=== PATIENT | male | born 1960 | race Caucasian/White ===

== ENCOUNTER 2016-05-17 08:44 | Emergency (ER) | payer OTHER ==
[~2016-05-17] VITALS: Ht 170.2 cm; Wt 90.5 kg
[~2016-05-17 08:44] MED LIST: ASPI325T4 PO; ATOR80TA75 PO; BACTDS PO; CLIN-73 PO; CLOP75TA27 PO; HYDR-3498 PO; HYDR-762 PO; HYDR-906 PO; IBUP400T22 PO; IBUP800T25 PO; INSU100C3 SC; LANT3I SC; LOSA50TA6 PO; MED4DP PO; METF-382 PO; METO25TA4 PO; NAPR-688 PO; [UNRECOGNIZED DRUG - CODE] IN
[2016-05-17 09:04] VITALS: Ht 170.2 cm; Wt 90.5 kg
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
[2016-05-17] MEDS ORDERED: IBUPROFEN 800 MG TAB PO ONE (10:00)
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
[2016-05-17] MEDS ORDERED: HYDR-902 PO (10:59)
[2016-05-17] MEDS ORDERED: NAPR-260 PO (11:00)
== END 2016-05-17 11:39 | disposition home or self-care (01) ==
LOC: FTE 08:44
DX: S59.902A Unspecified injury of left elbow, initial encounter (principal); S99.912A Unspecified injury of left ankle, initial encounter; E11.9 Type 2 diabetes mellitus without complications; V28.4XXA Motorcycle driver injured in noncollision transport accident in traffic accident, initial encounter; Z79.4 Long term (current) use of insulin; Z79.82 Long term (current) use of aspirin; Z79.84 Long term (current) use of oral hypoglycemic drugs
CPT/HCPCS: 29105; 73080; 73610; Z7502; Z7610

== ENCOUNTER 2016-05-29 01:37 | Observation (INO) | payer OTHER ==
[~2016-05-29] VITALS: Ht 175.3 cm; Wt 94.0 kg
[~2016-05-29 01:37] MED LIST changes: +HYDR-902 PO; +NAPR-260 PO
[2016-05-29] MEDS ORDERED: ONDANSETRON 4 MG INJ IV STA ×5 (02:26→13:54)
[2016-05-29] MEDS ORDERED: HYDROmorphONE 1 MG/ML SYG IV STA ×4 (02:26→18:34)
[2016-05-29 02:47] LABS: BASOPHILS % 0.3 % (0.0-2.0); EOSINOPHILS # 0.1 10^3/ul (0.0-0.5); EOSINOPHILS % 0.5 % (0.0-7.0); HEMOGLOBIN 15.1 g/dl (14.0-18.0); LYMPHOCYTES # 2.5 10^3/ul (0.8-2.9); LYMPHOCYTES % 14.3 % (15.0-51.0); MEAN CORPUSCULAR HEMOGLOBIN 31.1 pg (29.0-33.0); MEAN CORPUSCULAR HGB CONC 35.2 g/dl (32.0-37.0); MEAN CORPUSCULAR VOLUME 88.3 fl (82.0-101.0); MONOCYTE # 0.7 10^3/ul (0.3-0.9); MONOCYTES % 3.9 % (0.0-11.0); NEUTROPHIL # 14.3 10^3/ul (1.6-7.5); PLATELET COUNT 252 10^3/UL (140-440); RED BLOOD COUNT 4.87 10^6/ul (4.70-6.10); RED CELL DISTRIBUTION WIDTH 13.2 % (11.5-14.5); UNCORRECTED WBC 17.6 10^3/ul (4.8-10.8); WHITE BLOOD COUNT 17.6 10^3/ul (4.8-10.8)
[2016-05-29 02:51] LABS: CONDITION 1
[2016-05-29 02:53] LABS: POTASSIUM 4.5 mmol/L (3.5-5.1)
[2016-05-29 02:55] LABS: BILIRUBIN,INDIRECT 0.3 mg/dl (0-1.1); BILIRUBIN,TOTAL 0.3 mg/dl (0.2-1.3); CREATININE 0.53 mg/dl (0.61-1.24)
[2016-05-29 02:56] LABS: CALCIUM 9.5 mg/dl (8.4-10.2)
--- NOTE | 2016-05-29 03:56 | RADRPT ---
PROCEDURE: ULTRASOUND LIMITED ABDOMEN CLINICAL INDICATION: 56-year-old male with abdominal pain. TECHNIQUE: Multiple sonographic of the right upper quadrant of the abdomen were obtained. The imag es were reviewed on a PACS workstation. COMPARISON: Right upper quadrant ultrasound September 18, 2013; CT abdomen/pelvis September 18, 2013. FINDINGS: The pancreas is not well visualized secondary to overlying bowel gas. The liver displays diffuse increase echogenicity consistent with fatty infiltration The liver measur es 18.1 cm in length. No evidence of intrahepatic biliary ductal dilatation is seen. The portal and hepatic veins are unremarkable. The gallbladder contains multiple small echogenic mobile foci with minimal shadowing. The gallbladd er wall thickness is within normal limits measuring 2.7 mm. No pericholecystic fluid is seen. The c ommon bile duct measures 4.2 mm and is not dilated. The right kidney displays normal echogenicity. The right kidney measures 11.2 cm in maximal length. No caliectasis or hydronephrosis is seen. There is a mid right renal cyst measuring 2.2 x 1.7 x 2.0 cm. No free fluid is seen. IMPRESSION: 1. Diffuse fatty infiltration of the liver. 2. Cholelithiasis. 3. Right renal cyst. .Roman Gordon MD, Date Time Electronically viewed and signed by .Roman Gordon MD, on 05/29/2016 03:55 .Josue
[2016-05-29] MEDS ORDERED: SOD CHLORIDE 0.9% 1,000 ML IV ONE (04:30)
[2016-05-29] MEDS ORDERED: DICY10CA60 PO (05:13)
[2016-05-29] MEDS ORDERED: HYDR-902 PO (05:13)
[2016-05-29] MEDS ORDERED: ONDA4TAB14 PO (05:13)
--- NOTE | 2016-05-29 05:25 | ERD ---
ER Documentation Chief Complaint Date/Time DATE: 05/29/16 TIME: 05:19 Chief Complaint crampy upper belly pain since 2300 w/1 episode of bilous material vomit HPI This is a 56-year-old male who stated that he started getting some epigastric pain with a gradual onset about 1 PM yesterday. He said he gradually got worse but manageable. He said he then had dinner the pain got much more severe a few hours later around 10 PM. He had 2 episodes of vomiting and no diarrhea. No chest pain or shortness of breath no recent melena no blood or bile in the vomitus. The pain is described as crampy without radiation. No history of gallstones in the past or peptic ulcer disease ROS All systems reviewed and are negative except as per history of present illness. Medications Home Meds Active Scripts Hydrocodone/Acetaminophen ([place] 10-325 Tablet) 1 Each Tablet, 1 TAB PO Q6H Y for PAIN, #20 TAB Prov:SHELBY BESSSTOSBALDOS A. DO 05/29/16 Ondansetron (Ondansetron Odt) 4 Mg Tab.rapdis, 4 MG PO Q6H Y for NAUSEA AND/OR VOMITING, #10 TAB Prov:SHELBY BESSSTOLOS A. DO 05/29/16 Dicyclomine Hcl* (Bentyl*) 10 Mg Capsule, 20 MG PO QID for PAIN, #20 CAP Prov:LEKKOSSHELBYSTOLOS A. DO 05/29/16 Naproxen* (Naprosyn*) 500 Mg Tablet, 500 MG PO BID Y for PAIN AND/OR INFLAMMATION, #30 TAB Prov:TATA WAITE PA-C 05/17/16 Hydrocodone/Acetaminophen ([place] 10-325 Tablet) 1 Each Tablet, 1 TAB PO Q6H Y for PAIN, #10 TAB Prov:TATA WAITEC 05/17/16 Hydrocodone/Acetaminophen ([place] 5-325 Tablet) 1 Each Tablet, 1 TAB PO Q6H Y for PAIN, #10 TAB Prov:RUDY JOHNSON 03/15/16 Methylprednisolone* (Medrol* DOSE PACK) 4 Mg/Dose-Pack Tab.ds.pk, 4 MG PO . DIRECTED for 6 Days, PACKET Prov:RUDY JOHNSON 03/15/16 Hydrocodone/Acetaminophen ([place] 5-325 Tablet) 1 Each Tablet, 1 EACH PO Q6, #15 TAB Prov:MORALES TIDWELL PA-C 12/20/15 Clindamycin Hcl* (Clindamycin Hcl*) 300 Mg Capsule, 300 MG PO TID for 10 Days, CAP Prov:MORALES TIDWELL PA-C 12/20/15 Hydrocodone Bit-Acetaminophen* ([place]*) 5-325 Mg Tab, 1 TAB PO Q6 Y for PAIN, # 20 TAB Prov:ZOILA WORRELL LAMP TESTER AND INSPECTOR 05/23/15 Ibuprofen* (Ibuprofen*) 400 Mg Tablet, 400 MG PO Q6H Y for PAIN, #30 TAB Prov:ZOILA WORRELL LAMP TESTER AND INSPECTOR 05/23/15 Sulfamethoxazole-Trimethoprim* (Bactrim* DS) 800-160 Mg Tab, 1 TAB PO BID for 10 Days, TAB Prov:ZOILA WORRELL LAMP TESTER AND INSPECTOR 05/23/15 Hydrocodone Bit-Acetaminophen* ([place]*) 5-325 Mg Tab, 1 TAB PO Q6 Y for PAIN, # 14 TAB Prov:MATI CARIAS PA-C 04/19/15 Clindamycin Hcl* (Clindamycin Hcl*) 300 Mg Capsule, 300 MG PO TID for 7 Days, CAP Prov:MATI CARIAS PA-C 04/19/15 Sulfamethoxazole-Trimethoprim* (Bactrim* DS) 800-160 Mg Tab, 1 TAB PO BID for 7 Days, TAB Prov:MATI CARIAS PA-C 04/19/15 Naproxen* (Naproxen*) 500 Mg Tablet, 500 MG PO BID Y for PAIN, #30 TAB Prov:ANH NEGRON PA-C 04/15/15 Hydrocodone Bit-Acetaminophen* ([place]*) 5-325 Mg Tab, 1 TAB PO Q6 Y for PAIN, # 7 TAB Prov:ANH NEGRON PA-C 04/15/15 Sulfamethoxazole-Trimethoprim* (Bactrim* DS) 800-160 Mg Tab, 1 TAB PO BID for 7 Days, TAB Prov:MATI CARIAS PA-C 04/13/15 Ibuprofen* (Motrin*) 800 Mg Tab, 800 MG PO Q6H Y for PAIN AND OR ELEVATED TEMP, #20 TAB Prov:VERONICA MERAZ 12/03/14 Hydrocodone Bit-Acetaminophen* ([place]*) 10-325 Mg Tablet, 1 TAB PO Q6 Y for PAIN , #20 TAB Prov:VERONICA MERAZ 12/03/14 Blood Sugar Diagnostic (Freestyle Test Strips) 1 Strip Strip, 1 STRIP IN TID for 30 Days, STRIP 1 Refill Prov:BROOKE BILLINGS 03/18/14 Reported Medications Atorvastatin* (Atorvastatin*) 80 Mg Tablet, 80 MG PO HS, TAB 12/02/14 Metformin Hcl* (Metformin Hcl*) 500 Mg Tablet, 1000 MG PO BID, TAB 12/02/14 Metoprolol Tartrate* (Lopressor*) 25 Mg Tablet, 25 MG PO BID, TAB 12/02/14 Losartan Potassium* (Losartan Potassium*) 50 Mg Tablet, 50 MG PO DAILY, TAB 12/02/14 Insulin Glargine* (Lantus*) 100 Unit/Ml Soln, 75 UNIT SC HS, EA 12/02/14 Insulin Aspart (Novolog) 100 U/Ml Cartridge, 0 SC SLIDING SCALE AC, EA 12/02/14 Aspirin* (Aspirin*) 325 Mg Tablet, 325 MG PO DAILY, TAB 03/12/14 Clopidogrel Bisulfate (Clopidogrel) 75 Mg Tablet, 75 MG PO DAILY, TAB 03/12/14 Allergies Allergies: Coded Allergies: Penicillins (Verified Allergy, Unknown, 05/23/15) ALLERGY CHILD, UNKNOWN REACTION PMhx/Soc History of Surgery: Yes (Back Surgery,Abscess Repair,Cardiac Stents Placed) Anesthesia Reaction: No Hx Neurological Disorder: No Hx Respiratory Disorders: No Hx Cardiac Disorders: Yes Hx Psychiatric Problems: No Hx Miscellaneous Medical Probl: Yes (DM2,DKA,Paronychia) Hx Alcohol Use: Yes (Social) Hx Substance Use: Yes ([place] during HS days) Hx Tobacco Use: Yes (10 sticks/day) Smoking Status: Current every day smoker FmHx Family History: No coronary disease Physical Exam Vitals Vital Signs Date Time Temp Pulse Resp B/P Pulse Ox O2 Delivery O2 Flow Rate FiO2 05/29/16 04:00 98.1 61 16 139/66 94 Room Air 05/29/16 02:00 68 18 134/51 98 Room Air 05/29/16 01:40 98.3 63 20 154/67 100 Physical Exam Const: Well-developed, well-nourished Head: Atraumatic, normocephalic Eyes: Normal Conjunctiva, PERRLA, EOMI, normal sclera, no nystagmus ENT: Normal External Ears, Nose and Mouth, moist mucus membranes. Neck: Full range of motion. No meningismus, no lymphadenopathy. Resp: Clear to auscultation bilaterally, no wheezing, rhonchi, rales Cardio: Regular rate and rhythm, no murmurs, S1 S2 present Abd: Soft, mild to moderate epigastric and right upper quadrant tenderness, non distended. Normal bowel sounds, no guarding or rebound, no pulsitile abdominal masses or bruits Skin: No petechiae or rashes, no ecchymosis , no maculopapular rash Back: No midline or flank tenderness Ext: No cyanosis, or edema, FROM x 4, normal inspection, neurovascularly intact x 4 Neur: Awake and alert, STR 5/5 x 4, sensation intact x 4, no focal findings, cerebellum intact Psych: Normal Mood and Affect Result Diagram: 05/29/16 0206 05/29/16 0206 Results 24 hrs Laboratory Tests Test 05/29/16 02:06 Alanine Aminotransferase (ALT/SGPT) 30IU/L Albumin 4.0g/dl Albumin/Globulin Ratio 1.00 Alkaline Phosphatase 102IU/L Anion Gap 17 Aspartate Amino Transf (AST/SGOT) 17IU/L Basophils # 0.010^3/ul Basophils % 0.3% Blood Urea Nitrogen 15mg/dl Calcium Level 9.5mg/dl Carbon Dioxide Level 25mmol/L Chloride Level 102mmol/L Creatinine 0.53mg/dl Direct Bilirubin 0.00mg/dl Eosinophils # 0.110^3/ul Eosinophils % 0.5% Globulin 4.00g/dl Glucose Level 310mg/dl Hematocrit 43.0% Hemoglobin 15.1g/dl Indirect Bilirubin 0.3mg/dl Lipase 520U/L Lymphocytes # 2.510^3/ul Lymphocytes % 14.3% Mean Corpuscular Hemoglobin 31.1pg Mean Corpuscular Hemoglobin Concent 35.2g/dl Mean Corpuscular Volume 88.3fl Mean Platelet Volume 9.0fl Monocytes # 0.710^3/ul Monocytes % 3.9% Neutrophils # 14.310^3/ul Neutrophils % 81.0% Nucleated Red Blood Cells # 0.010^3/ul Nucleated Red Blood Cells % 0.0/100WBC Platelet Count 63066^3/UL Potassium Level 4.5mmol/L Red Blood Count 4.8710^6/ul Red Cell Distribution Width 13.2% Sodium Level 139mmol/L Total Bilirubin 0.3mg/dl Total Protein 8.0g/dl White Blood Count 17.610^3/ul Current Medications Medications (Trade) Dose Ordered Sig/Joselyn Route PRN Reason Start Time Stop Time Status Last Admin Dose Admin Hydromorphone HCl (Dilaudid) 1 mg ONCE STAT IV 05/29/16 02:26 05/29/16 02:28 DC 05/29/16 02:35 Ondansetron HCl 4 mg 4 mg ONCE STAT IV 05/29/16 02:26 05/29/16 02:28 DC 05/29/16 02:35 Sodium Chloride (NS) 1,000 ml @ 1,000 mls/hr Q1H ONCE IV 05/29/16 04:30 05/29/16 05:29 05/29/16 04:36 Procedures/MDM PROCEDURE: ULTRASOUND LIMITED ABDOMEN CLINICAL INDICATION: 56-year-old male with abdominal pain. TECHNIQUE: Multiple sonographic of the right upper quadrant of the abdomen were obtained. The images were reviewed on a PACS workstation. COMPARISON: Right upper quadrant ultrasound September 18, 2013; CT abdomen/pelvis September 18, 2013. FINDINGS: The pancreas is not well visualized secondary to overlying bowel gas. The liver displays diffuse increase echogenicity consistent with fatty infiltration The liver measures 18.1 cm in length. No evidence of intrahepatic biliary ductal dilatation is seen. The portal and hepatic veins are unremarkable. The gallbladder contains multiple small echogenic mobile foci with minimal shadowing. The gallbladder wall thickness is within normal limits measuring 2.7 mm. No pericholecystic fluid is seen. The common bile duct measures 4.2 mm and is not dilated. The right kidney displays normal echogenicity. The right kidney measures 11.2 cm in maximal length. No caliectasis or hydronephrosis is seen. There is a mid right renal cyst measuring 2.2 x 1.7 x 2.0 cm. No free fluid is seen. IMPRESSION: 1. Diffuse fatty infiltration of the liver. 2. Cholelithiasis. 3. Right renal cyst. .Roman Gordon MD, Date Time Electronically viewed and signed by .Roman Gordon MD, MD on 05/29/2016 03:55 .M/ CC: JOCELIN BESS DO The patient has slightly elevated lipase which could be from vomiting, or possibility of a stone is causing an early blockage in the common bile duct. Could be some early elevation of the lipase and the liver function tests will gradually increase as well but at this time they are not elevated. I will obtain an MRCP to evaluate for a retained stone. Spoke with Dr. Watts of general surgery who wanted a CT scan of the abdomen to evaluate for other possible causes of his abdominal pain. MRCP and CAT scan are negative pelvis and the patient home. Lipase of 500 is not very impressive for acute pancreatitis could have been caused from vomiting as stated above. So current plan is to rule out retained stone and other pathology discharge home and follow-up if negative. The patient says he is much more comfortable at this time Departure Diagnosis: Primary Impression: Gall stones Condition: Stable Patient Instructions: Gallstones Referrals: DONIS WATTS MD, APOSTOLOS A. DO May 29, 2016 05:25
[2016-05-29] MEDS ORDERED: SOD CHLORIDE 0.9% 100 ML ONE (05:41)
[2016-05-29] MEDS ORDERED: IOHEXOL 300MG/ML 150 ML BTL ONE (05:41)
--- NOTE | 2016-05-29 06:12 | RADRPT ---
PROCEDURE: CT ABDOMEN/PELVIS WITH CONTRAST CLINICAL INDICATION: 56-year-old male with abdominal pain. TECHNIQUE: The study was performed utilizing a GE Categoricalpeed VCT 64-slice CT scanner. Direct axia l sections were obtained through the abdomen and pelvis with the use of 100 of Isovue-300 nonionic i ntravenous contrast material. Sagittal and coronal reformations were obtained. Automated exposure co ntrol and iterative reconstruction techniques were utilized for this examination. The images were r eviewed on a PACS workstation. CTD/vol = 18.7 mGy; Total Exam DLP = 1272.0 mGy-cm. COMPARISON: CT abdomen/pelvis September 18, 2013. FINDINGS: There is trace bibasilar subsegmental atelectasis. There is no evidence for significant pleural eff usion. The liver has a normal size and contour without focal areas of abnormal density or contrast enhancement. No intrahepatic nor extrahepatic biliary ductal dilatation is seen. The gallbladder con tains an ovoid gallstone measuring 8 x 6 mm without significant wall thickening or pericholecystic f luid. The pancreas is without areas of abnormal attenuation or contrast enhancement. This spleen i s identified and has a normal size without abnormal density or contrast enhancement. The gland is un remarkable. Again identified is an ovoid hypodense nodule within the left adrenal gland measuring a pproximately 2.2 x 1.6 x 1.7 cm without significant interval change. The kidneys are functional bila terally. There is a right lower pole renal cortical cyst measuring approximately 2.4 x 2.3 x 2.2 cm . This was present previously. There are multiple smaller hypodense foci identified throughout the kidneys bilaterally consistent with small cysts. The largest on the left side measures approxim ately 1.1 x 1.2 x 1.2 cm. No hydroureteronephrosis nor nephroureterolithiasis is evident. The urinar y bladder contains urine. There is [id number] retained stool throughout the colon without wilma s bowel obstruction. The appendix is not visualized however there is no periappendiceal inflammator y changes. The prostate is not enlarged. There is no significant free fluid. Mild bilateral inguin al hernias are noted containing fat. The aortoiliac vessels are calcified but without aneurysmal dil atation. Mild degenerative changes are seen throughout the spine. IMPRESSION: 1. Cholelithiasis. 2. Stable left adrenal nodular mass. 3. Bilateral renal cysts. 4. Lnpo-jz-tabaimot retained stool within the colon without gross bowel obstruction. 5. Mild bilateral inguinal hernias containing fat. 6. Vascular calcifications. 7. Degenerative changes within the spine. .Roman Gordon MD, Date Time Electronically viewed and signed by .Roman Gordon MD, on 05/29/2016 06:11 .Josue
[2016-05-29] MEDS ORDERED: morphine 4 MG/ML VIAL IV STA ×2 (06:45→13:54)
[2016-05-29] MEDS ORDERED: SOD CHLORIDE 0.9% 1,000 ML IV STA (07:29)
[2016-05-29] MEDS ORDERED: CIPROFLOXACIN 400MG/D5W 200 ML IVPB STA (07:29)
[2016-05-29] MEDS ORDERED: metroNIDAZOLE 500 MG/NS (PMX) 100 ML IVPB STA (07:29)
[2016-05-29 08:24] LABS: ADD UMIC YES; URINE BILIRUBIN (Dip) NEGATIVE (NEGATIVE); URINE BLOOD (Dip) NEGATIVE (NEGATIVE); URINE COLOR LT. YELLOW (YELLOW); URINE GLUCOSE (Dip) >=1000 % (NEGATIVE); URINE KETONES (Dip) TRACE (NEGATIVE); URINE LEUKOCYTE ESTERASE (Dip) NEGATIVE (NEGATIVE); URINE NITRITE (Dip) NEGATIVE (NEGATIVE); URINE TOTAL PROTEIN (Dip) 1+ (NEGATIVE); URINE UROBILINOGEN (Dip) 0.2 E.U./dL (0.1-1.0)
[2016-05-29] MEDS ORDERED: ONDANSETRON 4 MG INJ IV PRN ×2 (10:30→14:00)
--- NOTE | 2016-05-29 10:31 | RADRPT ---
PROCEDURE: MRCP. CLINICAL INDICATION: Right upper quadrant pain. TECHNIQUE: Axial single shot fast-spin echo, axial and coronal fat-saturated FIESTA, single-shot M COMPUTERIZED MILL RECORDER using both thick and thin-slab collimation, and 3D MRCP were performed. COMPARISON: Same day CT. FINDINGS: Gallbladder demonstrate a tiny single calculus. No intrahepatic nor extrahepatic biliary dilatation. No filling defect or choledocholithiasis. No biliary stricture. Pancreatic duct, as visualized, is unremarkable. There are bilateral renal cysts with nonspecific trace perinephric fluid/inflammation. There is a 2.5 cm left adrenal nodule. IMPRESSION: 1. No radiologic evidence of choledocholithiasis, biliary dilatation, or biliary obstruction. 2. Cholelithiasis, uncomplicated. 3. Incidental left adrenal nodule. Recommend correlation with biochemical markers and follow-up un enhanced CT of the abdomen in 6-12 months RPTAT: EE .Mathieu Gavin MD, MD Date Time Electronically viewed and signed by .Mathieu Gavin MD, on 05/29/2016 10:34 .C/
[2016-05-29] MEDS ORDERED: SOD CHLORIDE 0.45% 1,000 ML IV SCH (13:53)
[2016-05-29] MEDS ORDERED: NACL 0.9% 3 ML SYG IV SCH (14:00)
[2016-05-29] MEDS ORDERED: DOCUSATE SODIUM 100 MG CAP PO PRN (14:00)
[2016-05-29] MEDS ORDERED: ACETAMINOPHEN 325 MG TAB PO PRN (14:00)
[2016-05-29] MEDS ORDERED: ACETAMINOPHEN 650 MG SUPP PR PRN (14:00)
[2016-05-29] MEDS ORDERED: BISACODYL 10 MG SUPP PR PRN (14:00)
[2016-05-29] MEDS ORDERED: GLUCOSE GEL 15 GRAM TUBE BUCCAL PRN (14:30)
[2016-05-29] MEDS ORDERED: GLUCOSE GEL 15 GRAM TUBE PO PRN ×2 (14:30)
[2016-05-29] MEDS ORDERED: DEXTROSE 50% 50 ML SYRINGE IV PRN ×2 (14:30)
[2016-05-29] MEDS ORDERED: GLUCAGON 1 MG INJ IM PRN (14:30)
[2016-05-29 15:58] VITALS: TEMP 98.4
[2016-05-29] MEDS: metroNIDAZOLE 500 MG/NS (PMX) 100 ML IVPB SCH ×2 (16:28→22:27)
[2016-05-29 16:59] VITALS: BP 189/79; RESP 18
[2016-05-29] MEDS: morphine 2 MG INJ IV PRN ×2 (17:07→21:06)
[2016-05-29 17:15] VITALS: Ht 175.3 cm; Wt 94.0 kg
--- NOTE | 2016-05-29 18:29 | HP ---
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 HISTORY OF PRESENT ILLNESS: This is a pleasant 56-year-old gentleman with past medical history of d yslipidemia, hypertension, diabetes mellitus who presents to [facility] Emergency Room at m idnight 05/29/2016 secondary to having right upper quadrant and epigastric abdominal pain radiating to his back. The patient had a CT of the abdomen and pelvis, which showed cholelithiasis, stable le ft adrenal mass, bilateral renal cysts, mild to moderate x2. MRCP was obtained, which showed no niraj dence of choledocholithiasis, biliary dilation, biliary obstruction, cholelithiasis uncomplicated, a nd then the left adrenal nodule. The gallbladder showed diffuse fatty infiltration of the liver. T he patient's WBC was found to be elevated at 17.6. He was treated with IV fluid, pain medication vi a Dilaudid, normal saline with ciprofloxacin and Flagyl. THE PATIENT IS ALLERGIC TO PENICILLIN. neral surgery was consulted. At this time, the patient is being admitted to med/surg for further ev aluation and treatment. REVIEW OF SYSTEMS: At this time, positive for nausea. No vomiting. Positive abdominal pain. No c hest pain, shortness of breath. No headache, no dizziness, no lightheadedness. No change in visual acuity, diplopia, or photophobia. No sick contact. No recent travel history. No heat and cold in tolerance. No neck pain, no restricted range of motion. No change in the color of stool. The othe r 12 review of systems has been found to be negative. PAST MEDICAL AND SURGICAL HISTORY: As above per HPI. MEDICATIONS: 1. Aspirin. 2. Lipitor. 3. Bentyl. 4. [place]. 5. Lantus. 6. Losartan. 7. Metformin. 8. Lopressor. 9. Zofran. ALLERGIES: PENICILLIN. SOCIAL HISTORY: Positive for smoking half a pack of cigarettes per day. Occasional alcohol use. N o illicit drugs. FAMILY HISTORY: Noncontributory. PHYSICAL EXAMINATION: VITAL SIGNS: Temperature 98.4, pulse 69, respiration 18, blood pressure 134/64, oxygen 93% in room air. GENERAL APPEARANCE: The patient is lying in bed comfortably without any acute distress. He is awak e, alert, oriented. He is able to answer my questions properly. EYES AND ENT: Conjunctivae and lids are normal. Pupils are normal. Extraocular normal. Hearing g rossly normal. Pupils are normal. Oral mucosa is dry. NECK: Supple. Trachea is midline. No lymphadenopathy. RESPIRATORY: Effort is normal. Clear to auscultation bilaterally. CARDIOVASCULAR: Normal S1, S2. Regular rhythm and rate. No murmur, no bruits, no edema. Peripher al pulses, radial pulses palpable. Cap refill is normal. CHEST: Normal expansion of thorax during inspiration. GASTROINTESTINAL: Abdomen soft. Tenderness in the midepigastric and right upper quadrant to deep p alpation. No guarding, no rebound. Bowel sounds present. GENITOURINARY: Deferred. MUSCULOSKELETAL: Upper and lower extremities within normal limits. Full range of motion. NEUROLOGIC: Cranial nerves II through XII are grossly intact. PSYCHIATRIC: Normal judgment and insight. Alert and oriented x3. Mood and affect are normal. LABORATORY WORK AND IMAGING: WBC 17.6, hemoglobin 15.1, hematocrit 43.0, platelets 252. Sodium 139 , potassium 4.5, chloride 102, bicarbonate 25, BUN 15, creatinine 0.53, glucose 310. LFTs all withi n normal limits. Lipase 520. ASSESSMENT AND PLAN: 1. Gallstone pancreatitis. 2. Cholecystitis. 3. Diabetes mellitus. 4. Hypertension. 5. Dyslipidemia. 6. History of nicotine abuse. PLAN: The patient will be admitted to med/surg. General surgery has been consulted. The patient w ill be n.p.o. Will follow up lipid panel and serum lipase daily. For his diabetes mellitus, the pa tient will be placed on his home medication, Lantus insulin sliding scale. When patient is able to tolerate oral intake, we will place him on a low carb diet. For his essential hypertension, patient 's blood pressure is well controlled on his home medication. Will continue same regimen. For deep venous thrombosis prophylaxis, at this time will place the patient on SCD. For gastrointestinal pro phylaxis, on proton pump inhibitor. We will continue to monitor patient closely. Further recommendations, management, and treatment as per clinical course. Total amount of time was spent for evaluation of patient and admission workup 40 minutes. Dictated By: NANCY CONROY/NTS Conf#: [id number] DID#: [id number]
[2016-05-29] MEDS ORDERED: INFLUENZA VIRUS VACCINE 0.5 ML SYG IM* ONE (18:30)
[2016-05-29 18:40] VITALS: BP 159/76; PULSE 76
[2016-05-29 19:00] VITALS: BP 168/79; RESP 20
[2016-05-29] MEDS ORDERED: hydrALAzine 20 MG INJ IV PRN (19:00)
[2016-05-29] MEDS: INSULIN ASPART [NOVOLOG] 3 ML PEN SC SCH (20:25)
[2016-05-29] MEDS ORDERED: KETOROLAC 30 MG INJ IV PRN ×2 (20:30)
[2016-05-29] MEDS: metFORMIN 500 MG TAB PO SCH (20:33)
[2016-05-29] MEDS: CIPROFLOXACIN 400MG/D5W 200 ML IVPB SCH (20:33)
[2016-05-29] MEDS: DEXTROSE 5%-0.45% NACL 1,000 ML IV SCH (20:34)
[2016-05-29] MEDS: METOPROLOL 25 MG TAB PO SCH (20:34)
[2016-05-29] MEDS ORDERED: INSULIN GLARGINE [LANtus] 3 ML PEN SC SCH (21:00)
[2016-05-29 22:30] VITALS: BP 154/72
[2016-05-30] MEDS: INSULIN ASPART [NOVOLOG] 3 ML PEN SC SCH ×3 (00:15→12:36)
[2016-05-30] MEDS: metroNIDAZOLE 500 MG/NS (PMX) 100 ML IVPB SCH ×2 (05:49→13:29)
[2016-05-30] MEDS: DEXTROSE 5%-0.45% NACL 1,000 ML IV SCH ×2 (05:50→16:26)
[2016-05-30] MEDS ORDERED: PANTOPRAZOLE 40 MG INJ IV SCH (06:00)
[2016-05-30 06:32] LABS: ALBUMIN 3.3 g/dl (3.3-4.9)
[2016-05-30 06:33] LABS: POTASSIUM 4.6 mmol/L (3.5-5.1)
[2016-05-30 06:35] LABS: ALBUMIN/GLOBULIN RATIO 1.22; BILIRUBIN,INDIRECT 0.3 mg/dl (0-1.1); BILIRUBIN,TOTAL 0.3 mg/dl (0.2-1.3); CREATININE 0.58 mg/dl (0.61-1.24)
[2016-05-30 06:36] LABS: CALCIUM 8.5 mg/dl (8.4-10.2); CHOL/HDL RATIO 4.3 RATIO; MAGNESIUM 1.6 mg/dl (1.7-2.5)
[2016-05-30 06:52] LABS: BASOPHILS % 0.3 % (0.0-2.0); EOSINOPHILS # 0.1 10^3/ul (0.0-0.5); EOSINOPHILS % 1.3 % (0.0-7.0); HEMATOCRIT 39.6 % (42.0-52.0); HEMOGLOBIN 13.4 g/dl (14.0-18.0); LYMPHOCYTES % 26.5 % (15.0-51.0); MEAN CORPUSCULAR HEMOGLOBIN 31.5 pg (29.0-33.0); MEAN CORPUSCULAR HGB CONC 33.8 g/dl (32.0-37.0); MEAN CORPUSCULAR VOLUME 93.2 fl (82.0-101.0); MEAN PLATELET VOLUME 9.1 fl (7.4-10.4); MONOCYTE # 0.9 10^3/ul (0.3-0.9); NEUTROPHIL # 7.1 10^3/ul (1.6-7.5); NEUTROPHILS % 63.9 % (39.0-77.0); PLATELET COUNT 199 10^3/UL (140-440); RED BLOOD COUNT 4.25 10^6/ul (4.70-6.10); RED CELL DISTRIBUTION WIDTH 13.5 % (11.5-14.5); UNCORRECTED WBC 11.2 10^3/ul (4.8-10.8); WHITE BLOOD COUNT 11.2 10^3/ul (4.8-10.8)
[2016-05-30 07:07] LABS: CONDITION 1
[2016-05-30 07:32] VITALS: BP 129/76; RESP 16
[2016-05-30] MEDS: CIPROFLOXACIN 400MG/D5W 200 ML IVPB SCH (08:07)
[2016-05-30] MEDS: METOPROLOL 25 MG TAB PO SCH (08:09)
[2016-05-30] MEDS: metFORMIN 500 MG TAB PO SCH (08:09)
[2016-05-30] MEDS ORDERED: ASPIRIN 325 MG TAB PO SCH (09:00)
[2016-05-30] MEDS ORDERED: LOSARTAN 50 MG TAB PO SCH (09:00)
[2016-05-30] MEDS: morphine 2 MG INJ IV PRN (09:39)
--- NOTE | 2016-05-30 15:58 | PDOCDIS ---
Discharge Instructions CONDITION Patient Condition: Stable HOME CARE INSTRUCTIONS: Special Diet: low carb ACTIVITY: Activity Restrictions: No Restrictions FOLLOW UP/APPOINTMENTS Appointments Follow up with PCP this week FOllow up with Surgery in 1-2 weeks NANCY LARA MD May 30, 2016 15:58
[2016-05-30] MEDS ORDERED: HYDR-906 PO (16:09)
[2016-05-30] MEDS ORDERED: CIPR500T4 PO (16:09)
--- NOTE | 2016-05-30 18:26 | CONS ---
DATE OF ADMISSION: 05/29/2016 DATE OF CONSULTATION: 05/30/2016 HISTORY OF PRESENT ILLNESS: Mr. Rojas is a 56-year-old male who presented to the emergency room at [facility] yesterday evening due to acute onset of substernal pain as well as bradley sea, vomiting, and diarrhea. The patient denies prior episodes. The patient states his symptoms st arted on Sunday and then worsened on Sunday after he ate a possibly uncooked steak. The patient's symptoms have resolved at this time. PAST MEDICAL HISTORY: Significant for axt-ffeyyyq-pssjsqzvo diabetes, hypertension, dyslipidemia. MEDICATIONS 1. Aspirin. 2. Lipitor. 3. Bentyl. 4. [place]. 5. Lantus. 6. Losartan. 7. Metformin. 8. Lopressor. 9. Zofran. ALLERGIES: PENICILLIN. SOCIAL HISTORY: Smokes half pack a day. Denies drinking or drug use. PHYSICAL EXAMINATION: GENERAL: He is a well-nourished, well-developed male in no apparent distress. VITAL SIGNS: He is currently afebrile. Vital signs stable. CHEST: Clear to auscultation bilaterally. HEART: Regular rhythm. ABDOMEN: Soft, nontender, nondistended. LABORATORY DATA: Reveal white count of 11 down from 17, hematocrit of 39, and platelets of 199. So dium 138, potassium 4.6, chloride 100, CO2 of 28. BUN and creatinine 9 and 0.6 with a glucose of 22 8. LFTs are within normal limits. Gallbladder ultrasound revealed cholelithiasis only. A CT of th e abdomen and pelvis was essentially normal except for cholelithiasis and an MRCP did not show lalit docholithiasis or any evidence of cholecystitis. ASSESSMENT AND PLAN: 1. Ms. Rojas is a 56-year-old male with likely gastroenteritis versus reflux. 2. He has is no clinical or radiologic evidence of cholecystitis. 3. I discussed the fact that this could be of attacks of biliary colic but at this point, it is not clear. I gave patient my card and he understands that if he has repeat symptoms, he is to call me be more likely to perform a laparoscopic cholecystectomy. But at this juncture, there is no i ndication. Dictated By: DONIS HOLLAND/NTS Conf#: [id number] [facility]#: [id number]
[2016-05-30] MEDS ORDERED: INSULIN GLARGINE [LANtus] 3 ML PEN SC SCH (21:00)
--- NOTE | 2016-05-30 23:00 | DS ---
DATE OF ADMISSION: 05/29/2016 DATE OF DISCHARGE: 05/30/2016 PROGRAMMER ANALYST CONSULTANT: Dr. Stephan Lechuga. DISCHARGE DIAGNOSES: 1. Asymptomatic cholelithiasis. 1. Gastroenteritis. 2. Diabetes mellitus. 3. Dyslipidemia. 4. Essential hypertension. 5. Hypomagnesemia. 6. Uncontrolled diabetes mellitus with hemoglobin A1c 12.9. MEDICATIONS: The patient will continue his home medications. 1. Aspirin 325 mg. 2. Lipitor 80 mg. 3. Bentyl 20 mg. 4. [place] ____. 5. Lantus. I have suggested to increase from 75 units to 80 units. 6. Losartan 50 mg. 7. Metformin 1000 mg b.i.d. 8. Metoprolol 25 mg. 9. Zofran 4 mg. NEW PRESCRIPTIONS: 1. Ciprofloxacin 500 mg p.o. b.i.d., #14. 2. [place] 5/325. ALLERGIES: PENICILLIN. DISPOSITION: Home after evaluation by general surgery. LABORATORY: WBC 11.3, hemoglobin 13.5, hematocrit 39.6, platelets 199. Sodium 138, potassium 4.6, chloride 100, bicarbonate 28, BUN 9, creatinine 0.58, glucose 228. Hemoglobin A1c 12.9. Calcium 8. 5, magnesium 1.6. Total bilirubin 0.3, direct bilirubin 0, indirect bilirubin 0.3. AST 16, ALT 25, alkaline phosphatase 75. Triglyceride 211, total cholesterol 177, LDL 94, HDL 41. VITAL SIGNS: Temperature 98.5, pulse 61, respirations 16, blood pressure 129/77, oxygen 96% on room air. HOSPITAL COURSE: This is a pleasant 56-year-old gentleman with past medical history of dyslipidemia , hypertension, diabetes mellitus, and chronic pain syndrome who presented to [facility] secondary to having right upper abdominal pain, epigastric abdominal pain radiating to his ba ck. The patient's CT of the abdomen and pelvis showed cholelithiasis, stable left adrenal mass, cecilio ateral renal cysts. MRCP showed no evidence of choledocholithiasis, biliary dilation or biliary obs truction; cholelithiasis uncomplicated. Gallbladder ultrasound showed diffuse fatty infiltration of the liver with no evidence of cholecystitis. The patient's WBC was found to be 17.6. He was start ed on IV fluid, Dilaudid, ciprofloxacin. The patient was admitted to med/surg. General surgery was consulted. After evaluation of the imaging by general surgeon, the patient was started on clear li quid diet, which he has been tolerating. The patient has not had any pain medication, such as morph ine, since this morning at 9:00 a.m. He has been asymptomatic without any abdominal pain. He has n ot had any postprandial abdominal pain as well. Regarding his dyslipidemia, the patient has been co ntinued on Lipitor and his lipid panel is within normal limits. Regarding his diabetes mellitus, th e patient ____ was made n.p.o. His insulin/Lantus was divided by half. He was placed on 30 units, although he was found to be mildly hyperglycemic. I explained this phenomenon and defining with the patient. The patient's hemoglobin A1c was found to be 12.9. This was discussed with him. I have suggested the patient should continue metformin and increase his Lantus 75 units to 80 units and kiara ck his glucose on a daily basis and follow up with his primary care physician as outpatient. Regard ing his hypertension, his blood pressure is well controlled on Lopressor. At this time, the patient is waiting for general surgery evaluation and, since he has been asymptomatic, as per general surge ry recommendation, he will be discharged home with a close followup with his primary care physician. In case if the patient started having abdominal pain, he needs to return to emergency room immedia tely for possible cholecystectomy. Total amount of time was spent for evaluation and discharge workup 40 minutes. Dictated By: NANCY CONROY/EBONI Conf#: [id number] DID#: [id number]
== END 2016-05-30 17:15 | disposition home or self-care (01) ==
LOC: E/R 01:37 → MS2 10:08
PROVIDERS: ADMIT Family Medicine; ATTEND Family Medicine
DX: K80.20 Calculus of gallbladder without cholecystitis without obstruction (principal); K52.9 Noninfective gastroenteritis and colitis, unspecified; E11.9 Type 2 diabetes mellitus without complications; I10 Essential (primary) hypertension; E78.5 Hyperlipidemia, unspecified; Z87.891 Personal history of nicotine dependence; E11.8 Type 2 diabetes mellitus with unspecified complications; Z23 Encounter for immunization
CPT/HCPCS: 36415; 74177; 74181; 76705; 80053; 80061; 81001; 82150; 82962; 83036; 83690; 83735; 84484; 85025; 87040; 87086; 90686; 93005; 96365; 96366; 96367; 96372; 96374; 96375; 96376; C9113; J0744; J1170; J1815; J2270; J2405; J7030; J7042; Q9967; Z7500; Z7502; Z7610; 81003; G0378

== ENCOUNTER 2016-08-19 16:28 | Emergency (ER) | payer OTHER ==
[~2016-08-19] VITALS: Ht 160 cm; Wt 89.0 kg
[~2016-08-19 16:28] MED LIST changes: -BACTDS PO; +CIPR500T4 PO; -CLIN-73 PO; -CLOP75TA27 PO; +DICY10CA60 PO; -HYDR-3498 PO; -HYDR-762 PO; -IBUP400T22 PO; -IBUP800T25 PO; -INSU100C3 SC; -MED4DP PO; -METF-382 PO; +METF500T4 PO; -NAPR-260 PO; -NAPR-688 PO; +ONDA4TAB14 PO; -[UNRECOGNIZED DRUG - CODE] IN
[2016-08-19 16:33] VITALS: Ht 160 cm; Wt 89.0 kg
[2016-08-19] MEDS ORDERED: LIDOCAINE 1% (MDV) 20 ML INJ SC ONE (18:30)
[2016-08-19] MEDS ORDERED: DIPHTH/TET/ACEL PERTUSS (ADULT) 0.5 ML VIAL IM* ONE (18:30)
[2016-08-19] MEDS ORDERED: HYDROCODONE/APAP (5/325) TAB PO ONE (18:30)
--- NOTE | 2016-08-19 18:33 | ERD ---
ER Documentation Chief Complaint Date/Time DATE: 08/19/16 TIME: 18:27 Chief Complaint RIGHT LEG LAC HPI This 56-year-old male who presents to the emergency department today for a right leg laceration that he sustained a couple of hours ago. Patient states he was putting his motorcycle when he scraped his leg against the license plate of the motorcycle. States he is unsure when he last had his tetanus shot. Denies any fevers or chills. Denies any previous trauma. ROS All systems reviewed and are negative except as per history of present illness. Medications Home Meds Active Scripts Ibuprofen* (Motrin*) 600 Mg Tab, 600 MG PO Q6, #30 TAB Prov:TATA WAITE PA-C 08/19/16 Hydrocodone/Acetaminophen ([place] 5-325 Tablet) 1 Each Tablet, 1 TAB PO Q6H Y for PAIN, #10 TAB Prov:TATA WAITE PA-C 08/19/16 Sulfamethoxazole/Trimethoprim* (Bactrim Ds* Tablet) 1 Each Tablet, 1 TAB PO BID , #10 TAB Prov:TATA WAITE PA-C 08/19/16 Hydrocodone/Acetaminophen ([place] 5-325 Tablet) 1 Each Tablet, 1 EACH PO Q6H, #1 TAB Prov:NANCY LARA MD 05/30/16 Ciprofloxacin Hcl* (Ciprofloxacin Hcl*) 500 Mg Tablet, 500 MG PO BID, #14 TAB Prov:NANCY LARA MD 05/30/16 Hydrocodone/Acetaminophen ([place] 10-325 Tablet) 1 Each Tablet, 1 TAB PO Q6H Y for PAIN, #20 TAB Prov:JOCELIN BESS DO 05/29/16 Ondansetron (Ondansetron Odt) 4 Mg Tab.rapdis, 4 MG PO Q6H Y for NAUSEA AND/OR VOMITING, #10 TAB Prov:JOCELIN BESS DO 05/29/16 Dicyclomine Hcl* (Bentyl*) 10 Mg Capsule, 20 MG PO QID for PAIN, #20 CAP Prov:JOCELIN BESS DO 05/29/16 Reported Medications Atorvastatin* (Atorvastatin*) 80 Mg Tablet, 80 MG PO HS, TAB 12/02/14 Metformin Hcl* (Metformin Hcl*) 500 Mg Tablet, 1000 MG PO BID, TAB 12/02/14 Metoprolol Tartrate* (Lopressor*) 25 Mg Tablet, 25 MG PO BID, TAB 12/02/14 Losartan Potassium* (Losartan Potassium*) 50 Mg Tablet, 50 MG PO DAILY, TAB 12/02/14 Insulin Glargine* (Lantus*) 100 Unit/Ml Soln, 75 UNIT SC HS, EA 12/02/14 Aspirin* (Aspirin*) 325 Mg Tablet, 325 MG PO DAILY, TAB 03/12/14 Allergies Allergies: Coded Allergies: Penicillins (Verified Allergy, Unknown, 08/19/16) ALLERGY CHILD, UNKNOWN REACTION PMhx/Soc History of Surgery: Yes (back surgery, abcess repair, cardiac stents from angio ) Anesthesia Reaction: No Hx Neurological Disorder: No Hx Respiratory Disorders: No Hx Cardiac Disorders: Yes (HTN, HYPERLIPIDEMIA, HX OF HEART ATTACK) Hx Psychiatric Problems: No Hx Miscellaneous Medical Probl: No Hx Alcohol Use: Yes (SOCIAL) Hx Substance Use: Yes (WEED IN HS) Hx Tobacco Use: Yes (10 STICKS/DAY) Smoking Status: Current every day smoker Physical Exam Vitals Vital Signs Date Time Temp Pulse Resp B/P Pulse Ox O2 Delivery O2 Flow Rate FiO2 08/19/16 16:33 98.1 99 18 153/72 99 Physical Exam Const: Talkative, no acute distress Head: Atraumatic Eyes: Normal Conjunctiva ENT: Normal External Ears, Nose and Mouth. Neck: Full range of motion..~ No meningismus. Resp: Clear to auscultation bilaterally Cardio: Regular rate and rhythm, no murmurs Skin: 3.5 cm laceration anterior aspect right tibia. No purulent drainage. Bleeding well controlled. Ext: No cyanosis, or edema. Right leg with 3.5 cm laceration anterior aspect right tibia. Full active range of motion at knee. Full active range of motion ankle. Neur: Awake and alert Psych: Normal Mood and Affect Results 24 hrs Current Medications Medications (Trade) Dose Ordered Sig/Joselyn Route PRN Reason Start Time Stop Time Status Last Admin Dose Admin Diphtheria/ Tetanus/Acell Pertussis (Adacel) 0.5 ml ONCE ONCE IM* 08/19/16 18:30 08/19/16 18:31 DC 08/19/16 18:27 Acetaminophen/ Hydrocodone Bitart ([place] (5/325)) 1 tab ONCE ONCE PO 08/19/16 18:30 08/19/16 18:31 DC 08/19/16 18:31 Lidocaine (Xylocaine 1% (Mdv) 20 ml) 20 ml ONCE ONCE SC 08/19/16 18:30 08/19/16 18:31 DC Procedures/MDM This 56-year-old male who presents to the emergency department today for a laceration on his right leg he sustained earlier today while scraping his leg against his license plate putting his motorcycle away. On physical exam patient has a 3.5 synovator laceration over the anterior aspect of his right tibia. I explained the risks and benefits of suturing the wound and patient has agreed to proceed. Patient tolerated the procedure well and there were no complications. The wound was cleaned in the usual sterile fashion. Laceration Repair by me: Anesthesia: 1% lidocaine locally 4 cc Location: Right tibia Tendon/Joint/Nerves: No injury Foreign body: None detected after copious irrigation and exploration Technique: 5 Simple Interrupted Sutures 4-0 Prolene Complexity: No subcutaneous sutures/mucosal repair/ edge excision Post Closure Length: 3.5 cm Patient's bleeding was easily controlled in the department and there is no indication of anemia. No evidence of compartment syndrome, neurologic injury, vascular injury, open joint, tendon laceration, or foreign body. Patient is appropriate for outpatient follow up. 48 hour wound check. Scar minimization instructions given. Patient was given a tetanus shot as he was not up-to-date. Patient was given a short course of [place], Motrin and Bactrim. Patient is allergic to penicillin. He was instructed to return in 48 hours for a wound check and again in 7-10 days for suture removal At this time the patient is stable for discharge and outpatient management. Patient should follow up with their PCP in the next 1-2 days. They may return to the emergency department sooner for any persistent or worsening of symptoms. Patient understood and agreed with the plan. Departure Diagnosis: Primary Impression: Laceration Condition: TATA Syed PA-C Aug 19, 2016 18:33
[2016-08-19] MEDS ORDERED: SULF1TAB31 PO (19:14)
[2016-08-19] MEDS ORDERED: IBUP-1542 PO (19:15)
[2016-08-19] MEDS ORDERED: HYDR-906 PO (19:15)
[2016-08-19 19:26] VITALS: BP 151/71; PULSE 89; RESP 16; TEMP 97.9
== END 2016-08-19 19:28 | disposition home or self-care (01) ==
LOC: FTE 16:28
DX: S81.811A Laceration without foreign body, right lower leg, initial encounter (principal); I10 Essential (primary) hypertension; E11.9 Type 2 diabetes mellitus without complications; F17.210 Nicotine dependence, cigarettes, uncomplicated; W26.9XXA Contact with unspecified sharp object(s), initial encounter; Y92.9 Unspecified place or not applicable; Z23 Encounter for immunization; Z79.4 Long term (current) use of insulin; Z79.84 Long term (current) use of oral hypoglycemic drugs; Z79.82 Long term (current) use of aspirin; Z98.61 Coronary angioplasty status
CPT/HCPCS: 12002; 90471; 90715; Z7502; Z7610

== ENCOUNTER 2016-08-22 09:02 | Emergency (ER) | payer OTHER ==
[~2016-08-22] VITALS: Ht 175.3 cm; Wt 93.5 kg
[~2016-08-22 09:02] MED LIST changes: +BACTDS PO; +CEPH-443 PO; +CLIN-72 PO; +CLIN-73 PO; +CLOP75TA27 PO; +CLOT15CR4 TOP; +DOXY100T20 PO; +HYDR-3498 PO; +HYDR-762 PO; +IBUP-1542 PO; +IBUP400T22 PO; +IBUP800T25 PO; +INSU100C3 SC; +INSU100I13 SC; +INSU100I16 SC; +IRBE300T13 PO; +LEVO500T72 PO; +LOSA25TA2 PO; +MED4DP PO; +METO25TA7 PO; +MTF1000T PO; +NAPR-260 PO; +NAPR-688 PO; +NOVO3I SC; +NYST15PO TOP; +OMEP20CA9 PO; +ROSU40TA35 PO; +SODI473S19 IRR; +SSD1C20 TOP; +SULF1TAB31 PO; +[UNRECOGNIZED DRUG - CODE] IN
[2016-08-22 09:10] VITALS: Ht 175.3 cm; Wt 93.5 kg
--- NOTE | 2016-08-22 09:42 | ERD ---
ER Documentation Chief Complaint Date/Time DATE: 08/22/16 TIME: 09:40 Chief Complaint SUTURE WOUND CHECK X2 DAYS, RIGHT LOWER LEG HPI Patient is a 56-year-old male who is here for a 2 day wound check for a laceration on his right anterior jacob. He had 5 sutures. He denies any pain. He denies any numbness or tingling. He is ambulatory. Denies fever, bleeding, or drainage. Has no other complaints. ROS All systems reviewed and are negative except as per history of present illness. Medications Home Meds Active Scripts Ibuprofen* (Motrin*) 600 Mg Tab, 600 MG PO Q6, #30 TAB Prov:TATA WAITE PA-C 08/19/16 Hydrocodone/Acetaminophen ([place] 5-325 Tablet) 1 Each Tablet, 1 TAB PO Q6H Y for PAIN, #10 TAB Prov:TATA WAITE PA-C 08/19/16 Sulfamethoxazole/Trimethoprim* (Bactrim Ds* Tablet) 1 Each Tablet, 1 TAB PO BID , #10 TAB Prov:TATA WAITE PA-C 08/19/16 Hydrocodone/Acetaminophen ([place] 5-325 Tablet) 1 Each Tablet, 1 EACH PO Q6H, #1 TAB Prov:NANCY LARA MD 05/30/16 Ciprofloxacin Hcl* (Ciprofloxacin Hcl*) 500 Mg Tablet, 500 MG PO BID, #14 TAB Prov:NANCY LARA MD 05/30/16 Hydrocodone/Acetaminophen ([place] 10-325 Tablet) 1 Each Tablet, 1 TAB PO Q6H Y for PAIN, #20 TAB Prov:JOCELIN BESS DO 05/29/16 Ondansetron (Ondansetron Odt) 4 Mg Tab.rapdis, 4 MG PO Q6H Y for NAUSEA AND/OR VOMITING, #10 TAB Prov:JOCELIN BESS DO 05/29/16 Dicyclomine Hcl* (Bentyl*) 10 Mg Capsule, 20 MG PO QID for PAIN, #20 CAP Prov:JOCELIN BESS DO 05/29/16 Reported Medications Atorvastatin* (Atorvastatin*) 80 Mg Tablet, 80 MG PO HS, TAB 12/02/14 Metformin Hcl* (Metformin Hcl*) 500 Mg Tablet, 1000 MG PO BID, TAB 12/02/14 Metoprolol Tartrate* (Lopressor*) 25 Mg Tablet, 25 MG PO BID, TAB 12/02/14 Losartan Potassium* (Losartan Potassium*) 50 Mg Tablet, 50 MG PO DAILY, TAB 12/02/14 Insulin Glargine* (Lantus*) 100 Unit/Ml Soln, 75 UNIT SC HS, EA 12/02/14 Aspirin* (Aspirin*) 325 Mg Tablet, 325 MG PO DAILY, TAB 03/12/14 Allergies Allergies: Coded Allergies: Penicillins (Verified Allergy, Unknown, 08/19/16) ALLERGY CHILD, UNKNOWN REACTION PMhx/Soc History of Surgery: Yes (back surgery, abcess repair, cardiac stents from angio ) Anesthesia Reaction: No Hx Neurological Disorder: No Hx Respiratory Disorders: No Hx Cardiac Disorders: Yes (HTN, HYPERLIPIDEMIA, HX OF HEART ATTACK) Hx Psychiatric Problems: No Hx Miscellaneous Medical Probl: No Hx Alcohol Use: Yes (SOCIAL) Hx Substance Use: Yes (WEED IN HS) Hx Tobacco Use: Yes (10 STICKS/DAY) FmHx Family History: No diabetes Physical Exam Vitals Vital Signs Date Time Temp Pulse Resp B/P Pulse Ox O2 Delivery O2 Flow Rate FiO2 08/22/16 09:10 97.9 76 18 160/63 97 Physical Exam General: well developed, well nourished, alert, nontoxic, no distress Head: normocephalic, atraumatic Neck: Supple, nontender, no lymphadenopathy, no midline tenderness Respiratory: Clear to auscaultation bilaterally, speaks in full sentences, no use of accesory muscles or labored breathing, no rales, ronchi, or wheezing Cardiovascular: RRR, No murmurs Extremities: moving all extremities normally, normal gait, no edema Skin: Healing laceration right anterior jacob with 5 simple interrupted sutures in place, no bleeding or drainage, no surrounding erythema, nontender Procedures/MDM Patient here for wound check. Wound is healing appropriately without having any evidence of infection recommended close follow-up with primary care returning to get the sutures taken out in 5-7 days. Recommended this patient follow up with her primary care doctor within 48 hours or return to the emergency room for any worsening of symptoms. However this time I do believe there is suitable for outpatient management. I answered all their questions and they agreed with the plan and were discharged home. Departure Diagnosis: Primary Impression: Encounter for wound re-check Condition: MORALES Mock PA-C Aug 22, 2016 09:42
== END 2016-08-22 10:00 | disposition home or self-care (01) ==
LOC: FTE 09:02
DX: Z48.01 Encounter for change or removal of surgical wound dressing (principal); I10 Essential (primary) hypertension; E11.9 Type 2 diabetes mellitus without complications; F17.210 Nicotine dependence, cigarettes, uncomplicated; Z79.4 Long term (current) use of insulin; Z79.82 Long term (current) use of aspirin; Z79.84 Long term (current) use of oral hypoglycemic drugs; Z98.61 Coronary angioplasty status
CPT/HCPCS: 99281

== ENCOUNTER 2016-08-29 06:44 | Emergency (ER) | payer OTHER ==
[~2016-08-29] VITALS: Ht 175.3 cm; Wt 92.5 kg
[~2016-08-29 06:44] MED LIST changes: -BACTDS PO; -CEPH-443 PO; -CLIN-72 PO; -CLIN-73 PO; -CLOP75TA27 PO; -CLOT15CR4 TOP; -DOXY100T20 PO; -HYDR-3498 PO; -HYDR-762 PO; -IBUP400T22 PO; -IBUP800T25 PO; -INSU100C3 SC; -INSU100I13 SC; -INSU100I16 SC; -IRBE300T13 PO; -LEVO500T72 PO; -LOSA25TA2 PO; -MED4DP PO; -METO25TA7 PO; -MTF1000T PO; -NAPR-260 PO; -NAPR-688 PO; -NOVO3I SC; -NYST15PO TOP; -OMEP20CA9 PO; -ROSU40TA35 PO; -SODI473S19 IRR; -SSD1C20 TOP; -[UNRECOGNIZED DRUG - CODE] IN
[2016-08-29 06:46] VITALS: Ht 175.3 cm; Wt 92.5 kg
[2016-08-29] MEDS ORDERED: BACITUD TOP (07:19)
--- NOTE | 2016-08-29 11:16 | ERA ---
ER Documentation Chief Complaint Date/Time DATE: 08/29/16 TIME: 11:14 Chief Complaint suture removal ( right leg area) HPI 56-year-old male presenting for suture removal. Describes no comp gating factors. Denies any symptoms. Has no, as this time. ROS All systems reviewed and are negative except as per history of present illness. Medications Home Meds Active Scripts Bacitracin* (Bacitracin Oint (UD)*) 1 Applic Oint, 1 APPLIC TOP ONCE for 3 Days , PKT APPLY TO Prov:AHMET SEAY PA-C 08/29/16 Ibuprofen* (Motrin*) 600 Mg Tab, 600 MG PO Q6, #30 TAB Prov:TATA WAITE PA-C 08/19/16 Hydrocodone/Acetaminophen ([place] 5-325 Tablet) 1 Each Tablet, 1 TAB PO Q6H Y for PAIN, #10 TAB Prov:TATA WAITE PA-C 08/19/16 Sulfamethoxazole/Trimethoprim* (Bactrim Ds* Tablet) 1 Each Tablet, 1 TAB PO BID , #10 TAB Prov:TATA WAITE PA-C 08/19/16 Hydrocodone/Acetaminophen ([place] 5-325 Tablet) 1 Each Tablet, 1 EACH PO Q6H, #1 TAB Prov:NANCY LARA MD 05/30/16 Ciprofloxacin Hcl* (Ciprofloxacin Hcl*) 500 Mg Tablet, 500 MG PO BID, #14 TAB Prov:NANCY LARA MD 05/30/16 Hydrocodone/Acetaminophen ([place] 10-325 Tablet) 1 Each Tablet, 1 TAB PO Q6H Y for PAIN, #20 TAB Prov:JOCELIN BESS DO 05/29/16 Ondansetron (Ondansetron Odt) 4 Mg Tab.rapdis, 4 MG PO Q6H Y for NAUSEA AND/OR VOMITING, #10 TAB Prov:JOCELIN BESS DO 05/29/16 Dicyclomine Hcl* (Bentyl*) 10 Mg Capsule, 20 MG PO QID for PAIN, #20 CAP Prov:JOCELIN BESS DO 05/29/16 Reported Medications Atorvastatin* (Atorvastatin*) 80 Mg Tablet, 80 MG PO HS, TAB 12/02/14 Metformin Hcl* (Metformin Hcl*) 500 Mg Tablet, 1000 MG PO BID, TAB 12/02/14 Metoprolol Tartrate* (Lopressor*) 25 Mg Tablet, 25 MG PO BID, TAB 12/02/14 Losartan Potassium* (Losartan Potassium*) 50 Mg Tablet, 50 MG PO DAILY, TAB 12/02/14 Insulin Glargine* (Lantus*) 100 Unit/Ml Soln, 75 UNIT SC HS, EA 12/02/14 Aspirin* (Aspirin*) 325 Mg Tablet, 325 MG PO DAILY, TAB 03/12/14 Allergies Allergies: Coded Allergies: Penicillins (Verified Allergy, Unknown, 08/19/16) ALLERGY CHILD, UNKNOWN REACTION PMhx/Soc History of Surgery: Yes (back surgery, abcess repair, cardiac stents from angio ) Anesthesia Reaction: No Hx Neurological Disorder: No Hx Respiratory Disorders: No Hx Cardiac Disorders: Yes (HTN, HYPERLIPIDEMIA, HX OF HEART ATTACK) Hx Psychiatric Problems: No Hx Miscellaneous Medical Probl: Yes (DM) Hx Alcohol Use: Yes (SOCIAL) Hx Substance Use: Yes (WEED IN HS) Hx Tobacco Use: Yes (10 STICKS/DAY) Smoking Status: Current every day smoker Physical Exam Vitals Vital Signs Date Time Temp Pulse Resp B/P Pulse Ox O2 Delivery O2 Flow Rate FiO2 08/29/16 06:46 98.2 71 19 162/73 98 Physical Exam Const: Well-appearing 56-year-old male Head: Atraumatic Eyes: Normal Conjunctiva ENT: Normal External Ears, Nose and Mouth. Neck: Full range of motion..~ No meningismus. Resp: Clear to auscultation bilaterally Cardio: Regular rate and rhythm, no murmurs Abd: Soft, non tender, non distended. Normal bowel sounds Skin: No petechiae or rashes Back: No midline or flank tenderness Ext: 5 stitches in the lower right leg on the lateral aspect. There is no erythema, edema, induration, tenderness noted. Neur: Awake and alert Psych: Normal Mood and Affect Procedures/MDM 56-year-old male presented for suture removal. Has no complaints and no symptoms of infection at this time. Denies fever. I very low suspicion for infection at this time. Patient's tetanus is up-to-date. We will go ahead and remove the sutures. Sutures removed by nurse. There are no pain factors. 5 sutures were removed. We will go ahead and discharge patient with return precautions. Departure Diagnosis: Primary Impression: Encounter for removal of sutures Additional Impressions: Visit for suture removal Suture check Condition: Stable Patient Instructions: Suture Removal, No Complication Additional Instructions: Keep wound dry and wash with soap and water only. Apply bacitracin ointment as prescribed. Follow up with your PCP within the next 1-3 days for a more thorough evaluation and a possible referral to a specialist. Return the the emergency department immediately if symptoms worsen or change. If you have any questions regarding medications, ask your pharmacist or us before you leave. If any adverse reactions occur while taking your medications, discontinue the treatment and return to the emergency department immediately. Take your medications as directed, and complete the entire course of treatment. AHMET SEAY PA-C August 29, 2016 11:15
== END 2016-08-29 07:26 | disposition home or self-care (01) ==
LOC: FTE 06:44
DX: Z48.02 Encounter for removal of sutures (principal); I10 Essential (primary) hypertension; E11.9 Type 2 diabetes mellitus without complications; F17.210 Nicotine dependence, cigarettes, uncomplicated; Z79.4 Long term (current) use of insulin; Z79.82 Long term (current) use of aspirin; Z79.84 Long term (current) use of oral hypoglycemic drugs; Z98.61 Coronary angioplasty status
CPT/HCPCS: 99283